=== PATIENT | male | born 1965 | race Caucasian/White ===

== ENCOUNTER 2018-01-16 18:28 | Emergency (ER) | payer OTHER ==
--- NOTE | 2018-01-16 18:41 | ER Document Report ---
ED Medical Screen (RME) - General Chief Complaint: S/S of Possible Stroke Stated Complaint: POSSIBLE STROKE Time Seen by Provider: 01/16/18 18:39 Mode of Arrival: Ambulatory Information source: Patient Notes: 53-year-old male history of 2 previous CVAs presents with family with concerns of altered mental status slurred speech. Patient's last known well was 7:00 this morning I have greeted and performed a rapid initial assessment of this patient. A comprehensive ED assessment and evaluation of the patient, analysis of test results and completion of the medical decision making process will be conducted by additional ED providers. PHYSICAL EXAMINATION: GENERAL: Well-appearing, well-nourished and in no acute distress. HEAD: Atraumatic, normocephalic. EYES: Pupils equal round extraocular movements intact, conjunctiva are normal. ENT: Nares patent NECK: Normal range of motion LUNGS: No respiratory distress Musculoskeletal: Normal range of motion NEUROLOGICAL: Minimal slurred speech noted PSYCH: Normal mood, normal affect. SKIN: Warm, Dry, normal turgor, no rashes or lesions noted. TRAVEL OUTSIDE OF THE [place] IN LAST 30 DAYS: No - Related Data Allergies/Adverse Reactions: No Known Allergies Allergy (Verified 07/18/16 14:31) Past Medical History - Past Medical History Cardiac Medical History: Reports: Hx Hypertension - newly diagnosed Neurological Medical History: Reports: Hx Cerebrovascular Accident Psychiatric Medical History: Denies: Hx Depression Physical Exam - Vital signs Vitals: Temp Pulse BP Pulse Ox 97.9 F 110 H 144/95 H 95 01/16/18 18:34 01/16/18 18:34 01/16/18 18:34 01/16/18 18:34 Course - Vital Signs Vital signs: Temp Pulse Resp BP Pulse Ox 97.9 F 110 H 144/95 H 95 01/16/18 18:34 01/16/18 18:34 01/16/18 18:34 01/16/18 18:34
--- NOTE | 2018-01-16 19:00 | RADIOLOGY REPORT (SQ) ---
EXAM DESCRIPTION: CHEST SINGLE VIEW COMPLETED DATE/TIME: 01/16/2018 6:48 pm REASON FOR STUDY: slurred speech COMPARISON: 07/18/2016 EXAM PARAMETERS: NUMBER OF VIEWS: One view. TECHNIQUE: Single frontal radiographic view of the chest acquired. RADIATION DOSE: NA LIMITATIONS: None. FINDINGS: LUNGS AND PLEURA: No opacities, masses or pneumothorax. No pleural effusion. MEDIASTINUM AND HILAR STRUCTURES: No masses. Contour normal. HEART AND VASCULAR STRUCTURES: Heart normal in size. Normal vasculature. BONES: No acute findings. HARDWARE: None in the chest. OTHER: No other significant finding. IMPRESSION: NO ACUTE RADIOGRAPHIC FINDING IN THE CHEST. TECHNICAL DOCUMENTATION: JOB ID: [id number] [employer]- All Rights Reserved Reading location - IP/workstation name: [email or web address]
--- NOTE | 2018-01-16 19:07 | RADIOLOGY REPORT (SQ) ---
EXAM DESCRIPTION: CT HEAD WITHOUT COMPLETED DATE/TIME: 01/16/2018 6:51 pm REASON FOR STUDY: slurred speech COMPARISON: 07/18/2016 TECHNIQUE: Axial images acquired through the brain without intravenous contrast. Images reviewed wi th bone, brain and subdural windows. Images stored on PACS. All CT scanners at this facility use dose modulation, iterative reconstruction, and/or weight based d osing when appropriate to reduce radiation dose to as low as reasonably achievable (ALARA). [facility]: Dose Right [facility]: CareDose [facility]: Dose Right [facility]: Teradose 4D [facility]: Smart Technologies RADIATION DOSE: CT Rad equipment meets quality standard of care and radiation dose reduction techniq ues were employed. CTDIvol: 64.6 mGy. DLP: 1163 mGy-cm. mGy. LIMITATIONS: None. FINDINGS: VENTRICLES: Normal size and contour. CEREBRUM: There are old occipital infarcts bilaterally, the right is greater than the left. There is no acute hemorrhage or infarction. Normal arzola/white matter differentiation. CEREBELLUM: No masses. No hemorrhage. No alteration of density. No evidence for acute infarction. EXTRAAXIAL SPACES: No fluid collections. No masses. ORBITS AND GLOBE: No intra- or extraconal masses. Normal contour of globe without masses. CALVARIUM: No fracture. PARANASAL SINUSES: Significant mucoperiosteal thickening is present in the left maxillary sinus and m ild changes in the right. SOFT TISSUES: No mass or hematoma. OTHER: No other significant finding. IMPRESSION: 1. 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 2. Maxillary sinus disease. EVIDENCE OF ACUTE STROKE: NO. COMMENT: Findings were discussed with the ordering physician at 1901 hours on this date. Quality ID # [id number]: Final reports with documentation of one or more dose reduction techniques (e.g., Au tomated exposure control, adjustment of the mA and/or kV according to patient size, use of iterative reconstruction technique) TECHNICAL DOCUMENTATION: JOB ID: [id number] [employer] All Rights Reserved Reading location - IP/workstation name: [email or web address]
[2018-01-16 19:30] LABS: HEMATOCRIT 44.5 % (37.9-51.0); MEAN CORPUSCULAR HEMOGLOBIN 31.1 pg (27.0-33.4); MEAN CORPUSCULAR HGB CONC 33.7 g/dL (32.0-36.0); MEAN CORPUSCULAR VOLUME 92 fl (80-97); PLATELET COUNT 383 10^3/uL (150-450); RED BLOOD COUNT 4.82 10^6/uL (4.35-5.55); RED CELL DISTRIBUTION WIDTH 13.1 % (11.5-14.0); WHITE BLOOD COUNT 17.8 10^3/uL (4.0-10.5)
[2018-01-16 19:41] LABS: ALANINE AMINOTRANSFERASE 34 U/L (21-72); ALBUMIN 4.5 g/dL (3.5-5.0); ALKALINE PHOSPHATASE 89 U/L (38-126); ANION GAP 13 (5-19); ASPARTATE AMINO TRANSFERASE 24 U/L (17-59); BILIRUBIN,DIRECT 0.4 mg/dL (0.0-0.4); BILIRUBIN,TOTAL 0.5 mg/dL (0.2-1.3); BLOOD UREA NITROGEN 14 mg/dL (7-20); CALCIUM 9.5 mg/dL (8.4-10.2); CARBON DIOXIDE 22 mmol/L (22-30); CHLORIDE 103 mmol/L (98-107); CREATINE KINASE 222 U/L (55-170); GLUCOSE 117 mg/dL (75-110); POTASSIUM 4.6 mmol/L (3.6-5.0); SODIUM 137.7 mmol/L (137-145)
--- NOTE | 2018-01-16 19:45 | ER Document Report ---
ED General - General Chief Complaint: S/S of Possible Stroke Stated Complaint: POSSIBLE STROKE Time Seen by Provider: 01/16/18 18:39 Mode of Arrival: Ambulatory Information source: Patient, Relative Notes: This is a 53-year-old man with a history of atrial fibrillation (Eliquis), CVA 2 who is brought into the emergency room because of drooling, unsteadiness, shaking and having fell on the floor. Patient was last seen by the son at 8 AM before the son went to work. The patient states that sometime during the morning, his symptoms started rather abruptly. The patient's states that the patient did not "feel well last night". Patient at baseline has a left hemianopsia, processing issues, but he is ambulatory but is limited somewhat by his visual disturbance. TRAVEL OUTSIDE OF THE [place] IN LAST 30 DAYS: No - HPI Onset: Just prior to arrival Onset/Duration: Sudden Quality of pain: No pain Severity: None Pain Level: Denies Associated symptoms: Diarrhea, Nausea. denies: Chills, Fever, Shortness of breath Exacerbated by: Denies Relieved by: Denies Similar symptoms previously: Yes Recently seen / treated by doctor: Yes - Related Data Allergies/Adverse Reactions: No Known Allergies Allergy (Verified 07/18/16 14:31) Past Medical History - General Information source: Patient - Social History Smoking Status: Former Smoker Cigarette use (# per day): No Chew tobacco use (# tins/day): No Frequency of alcohol use: None Drug Abuse: None Lives with: Family Family History: Reviewed & Not Pertinent Patient has suicidal ideation: No Patient has homicidal ideation: No - Past Medical History Cardiac Medical History: Reports: Hx Hypercholesterolemia, Hx Hypertension - newly diagnosed Neurological Medical History: Reports: Hx Cerebrovascular Accident Renal/ Medical History: Denies: Hx Peritoneal Dialysis Psychiatric Medical History: Denies: Hx Depression Surgical Hx: Negative Past Surgical History: Reports: Other - Mole removed from the face Review of Systems - Review of Systems Constitutional: denies: Chills, Fever EENT: No symptoms reported Cardiovascular: No symptoms reported Respiratory: No symptoms reported Gastrointestinal: See HPI Genitourinary: No symptoms reported Male Genitourinary: No symptoms reported Musculoskeletal: No symptoms reported Skin: No symptoms reported Hematologic/Lymphatic: No symptoms reported Neurological/Psychological: See HPI Physical Exam - Vital signs Vitals: Temp Pulse BP Pulse Ox 97.9 F 110 H 144/95 H 95 01/16/18 18:34 01/16/18 18:34 01/16/18 18:34 01/16/18 18:34 Notes: Physical exam: GENERAL: This is a 53-year-old man, he appears to have dry mucous membranes, he is alert and answering questions and he moans intermittently. He does appear chronically ill. He does have ketones on his breath. Temperature is 99.7 rectally, pulse is 106, O2 sat is 96% on room air, respiratory rate is 20, blood pressure is 150/95. HEAD: Atraumatic, normocephalic. EYES: Pupils equal round and reactive to light, extraocular movements intact, sclera anicteric, conjunctiva are normal. ENT: TMs normal, nares patent, oropharynx clear without exudates. Dry mucous membranes. NECK: Normal range of motion, supple without obvious mass or JVD. LUNGS: Breath sounds clear to auscultation bilaterally and equal. No wheezes rales or rhonchi. HEART: Regular rate and rhythm without murmurs, rubs or gallops. ABDOMEN: Soft, normoactive bowel sounds. No tenderness to palpation. No guarding, no rebound. No masses appreciated. Rectal: He does have an external hemorrhoid. There is no obvious masses on digital rectal exam above the external hemorrhoid. The stool was sent to lab for heme study. EXTREMITIES: Normal range of motion, no pitting or edema. No clubbing or cyanosis. NEUROLOGICAL: Patient has a residual left hemianopsia, he does have slurred speech as per the son and , no focal motor weakness, sensory appears to be intact. The gait was not tested PSYCH: Normal mood, normal affect. SKIN: Warm, Dry, normal turgor, no rashes or lesions noted. Course - Re-evaluation Re-evalutation: 01/16/18 23:06 Note: The onset of the event today was sometime after 8 AM (last seen normal 11 hours previous). The patient's symptoms after discussion with the and son with slurred speech, gait imbalance. Patient was complaining of headache, unsteadiness and weakness. Patient has no obvious focal motor weakness on exam , his speech was slightly slurred, he does have a chronic hemianopsia, his sensory was intact. By history, the patient's states that the slurred speech had improved by the time I saw him (but did not resolve completely). She states that this was similar to previous presentation of a prior stroke. The patient's exam was essentially unremarkable. He did appear to have some blood around an external hemorrhoid but a rectal exam showed stool which was heme negative. He does have a leukocytosis but has been afebrile and no obvious source of infection at this time. 01/16/18 23:07 - Vital Signs Vital signs: Temp Pulse Resp BP Pulse Ox 99.7 F 93 22 H 130/93 H 94 01/16/18 19:33 01/17/18 00:00 01/17/18 01:31 01/17/18 01:31 01/17/18 01:31 - Laboratory Result Diagrams: 01/16/18 19:05 01/16/18 19:05 Laboratory results interpreted by me: 01/16/18 01/16/18 01/16/18 19:05 19:05 22:34 WBC 17.8 H Seg Neuts % (Manual) 93 H Lymphocytes % (Manual) 6 L Monocytes % (Manual) 1 L Abs Neuts (Manual) 16.6 H Glucose 117 H Creatine Kinase 222 H Urine Protein 30 H Urine Blood MODERATE H - Diagnostic Test Radiology reviewed: Image reviewed, Reports reviewed - CT of the head shows old bilateral occipital strokes. Chest x-ray shows no infiltrates. - EKG Interpretation by Me Rate: Tachycardia - EKG shows sinus tachycardia with a ventricular rate of 114, no acute ST-T wave changes Critical Care Note - Critical Care Note Total time excluding time spent on procedures (mins): 60 Discharge - Discharge Clinical Impression: CVA, Leukocytosis Condition: Stable Disposition: ADMITTED OBSERVATION Admitting Provider: Hospitalist - Dr Garcia Unit Admitted: Telemetry
[2018-01-16] MEDS ORDERED: NORMAL SALINE 1000 ML 1,000 ML IV ONE ×2 (19:46→22:25)
[2018-01-16 19:52] LABS: CREATINE KINASE MB 4.49 ng/mL (<4.55)
[2018-01-16 19:55] LABS: INTERNATIONAL RATION (INR) 1.09; PARTIAL THROMBOPLASTIN TIME 34.7 SEC (23.5-35.8); PROTHROMBIN TIME 14.9 SEC (11.4-15.4); TROPONIN I < 0.012 ng/mL
[2018-01-16 20:02] LABS: ABSOLUTE LYMPHOCYTES# (MANUAL) 1.1 10^3/uL (0.5-4.7); ABSOLUTE MONOCYTES # (MANUAL) 0.2 10^3/uL (0.1-1.4); ABSOLUTE NEUTROPHILS# (MANUAL) 16.6 10^3/uL (1.7-8.2); BASOPHILS % (MANUAL) 0 % (0-2); EOSINOPHILS % (MANUAL) 0 % (0-6); LYMPHOCYTES % (MANUAL) 6 % (13-45); MONOCYTES % (MANUAL) 1 % (3-13); SEGMENTED NEUTROPHILS % (MAN) 93 % (42-78); TOTAL CELLS COUNTED 100
[2018-01-16 20:03] LABS: PLATELET COMMENT ADEQUATE; PLATELET LARGE PRESENT
[2018-01-16] MEDS ORDERED: ONDANSETRON HCL INJ/PF 4 MG/2 ML SDV IV ONE (20:03)
[2018-01-16 20:04] LABS: POLYCHROMASIA SLIGHT
[2018-01-16] MEDS ORDERED: DIPHENHYDRAMINE HCL 50 MG/ML VIAL IV ONE (20:51)
[2018-01-16] MEDS ORDERED: METOCLOPRAMIDE HCL INJ/PF 10 MG/2 ML SDV IV ONE (20:51)
[2018-01-16] MEDS ORDERED: ACETAMINOPHEN 325 MG TABLET PO ONE (20:52)
--- NOTE | 2018-01-16 22:02 | EKG REPORT ---
SEVERITY:- BORDERLINE ECG - SINUS TACHYCARDIA PROBABLE LEFT ATRIAL ABNORMALITY : Confirmed by: Rosie Phillip 16-Jan-2018 22:00:45
[2018-01-16 22:54] LABS: APPEARANCE,URINE CLOUDY; BILIRUBIN,URINE NEGATIVE (NEGATIVE); COLOR,URINE YELLOW; GLUCOSE, URINE NEGATIVE (NEGATIVE); KETONES,URINE NEGATIVE (NEGATIVE); LEUKOCYTE ESTERASE,URINE NEGATIVE (NEGATIVE); NITRITE,URINE NEGATIVE (NEGATIVE); PROTEIN,URINE 30 mg/dL (NEGATIVE); URINE SPECIFIC GRAVITY 1.023; UROBILINOGEN,URINE NEGATIVE mg/dL (<2.0)
[2018-01-17] MEDS ORDERED: ONDANSETRON HCL INJ/PF 4 MG/2 ML SDV IV PRN (00:23)
[2018-01-17] MEDS ORDERED: ACETAMINOPHEN 325 MG TABLET PO PRN (00:23)
[2018-01-17] MEDS ORDERED: HYDRALAZINE HCL INJ/PF 20 MG/1 ML SDV IV PRN (00:35)
--- NOTE | 2018-01-17 05:53 | PDOC H&P ---
History of Present Illness Admission Date/PCP: 01/16/18 23:40 KIANNA CONTRERAS PA-C Patient complains of: Left-sided headache and neck pain, nausea and bright lights in the left eye around 8 AM. Generalized weakness and chills today per . History of Present Illness: CHRISTEN ASHTON is a 53 year old male smoker with history of paroxysmal A. fib (on eliquis), CVA 2 (with left hemianopsia and slow mentation) and hypertension was admitted with above-mentioned complaints. The patient is currently sleepy so most of the history was obtained from his at bedside. According to his , the patient was doing well when he woke up this morning around 6:30 AM. And when she called the house later in the day to check on her , he did not answer which was not an unusual thing since he has been taking several naps during the day since his CVA. But around 5:30 PM - 6:00 PM when she came back home, she said that the patient seemed "disoriented" and he told her that he was feeling very weak and that he fell. She also noticed that he might have some slurred speech so she was concerned about him having another stroke and decided to bring him to the hospital for further management and treatment. According to the patient who provided limited history, he started having left- sided headache and neck pain around 8:00 AM (similar symptoms to previous CVAs) . He also had some flashing lights in his left eye and felt nauseous. He denied any fever but complained of chills and diaphoresis. He also complained of some cough with shortness of breath, shaking chills and drooling. He apparently went to the bathroom but since he was feeling so weak, he fell onto the toilet. He was able to get up by himself and walked towards his bedroom but as he was trying to sit in the chair, he fell out of it and it took him sometime to get up. He also complained of having diarrhea and decreased appetite today. According to his , he was around family members who had URI symptoms lately. In the ED, his temperature was 97.9, heart rate 110, respiratory rate 28 (down to 19), pressure 144/95 with oxygen saturation of 95% on room air. His WBC was 17.8. Blood glucose was 117 and initial troponin negative. His UA and CXR were both negative. A head CT was done which showed old bilateral occipital infarcts with no acute intracranial findings. Past Medical History Medical History: Other - According to the patient's and based on previous records. Cardiac Medical History: Reports: Atrial Fibrillation - paroxysmal, Hyperlipidema, Hypertension - newly diagnosed Neurological Medical History: Reports: Ischemic CVA Psychiatric Medical History: Denies: Depression Past Surgical History Past Surgical History: Reports: Tonsillectomy, Other - basal cell cancer resection from right cheek. Social History Smoking Status: Current Every Day Smoker Cigarettes Packs Per Day: 0.5 - In a pack a day for more than 30 years. Frequency of Alcohol Use: Heavy - Beer 3 times a week per . Hx Recreational Drug Use: No Drugs: None Hx Prescription Drug Abuse: No - Advance Directive Resuscitation Status: Full Code Family History Parental Family History Reviewed: Yes - No diabetes in the family or heart disease per patient. Children Family History Reviewed: No Sibling(s) Family History Reviewed.: Yes Medication/Allergy Home Medications: Apixaban [Eliquis] 5 mg PO DAILY 07/18/16 Atorvastatin Calcium 40 mg PO QHS 07/18/16 Lisinopril [Lisinopril] 20 mg PO DAILY 07/18/16 Sertraline HCl [Sertraline HCl] 50 mg PO DAILY 07/18/16 Allergies/Adverse Reactions: No Known Allergies Allergy (Verified 07/18/16 14:31) Review of Systems ROS unobtainable: Other - Pertinent positives and negatives as detailed in the HPI. Physical Exam Vital Signs: Temp Pulse Resp BP Pulse Ox 99.7 F 94 23 H 124/68 90 L 01/16/18 19:33 01/16/18 21:00 01/16/18 21:30 01/16/18 21:30 01/16/18 21:30 General appearance: PRESENT: no acute distress, well-developed Head exam: PRESENT: atraumatic, normocephalic Eye exam: PRESENT: conjunctiva pink, EOMI, PERRLA Mouth exam: PRESENT: moist, neck supple Neck exam: PRESENT: full ROM. ABSENT: JVD Respiratory exam: PRESENT: clear to auscultation carl. ABSENT: rales, rhonchi, wheezes Cardiovascular exam: PRESENT: RRR, +S1, +S2 Pulses: PRESENT: normal dorsalis pedis pul GI/Abdominal exam: PRESENT: normal bowel sounds, soft. ABSENT: distended, rebound, tenderness Rectal exam: PRESENT: deferred Extremities exam: ABSENT: pedal edema Musculoskeletal exam: PRESENT: full ROM Neurological exam: PRESENT: oriented to person, oriented to place, oriented to time, oriented to situation, CN II-XII grossly intact - Except CN II and VIII., other - Sleepy but arousable.. ABSENT: motor sensory deficit Skin exam: PRESENT: dry, warm. ABSENT: intact, rash Results Laboratory Results: CBC: WBC 7.8, hemoglobin 15.0, hematocrit 44.5, MCV 92, RDW 13.1, platelets 383. PT/INR 14.9/1.09. CMP: Sodium 137.7, potassium 4.6, chloride 103, bicarb 22, anion gap 13, BUN 14 , creatinine 0.74, glucose 117, calcium 9.5, liver enzymes within normal limits. Troponin 1 negative. UA negative. Hemoccult stool negative. EKG Comments: Lead EKG, sinus rhythm, ventricular rate 115, [place] 0, QTC prolongation, first- degree AV block, Q-wave in lead III no other changes. Compared to a previous 12 -lead EKG done on 07/18/2016, sinus rhythm, ventricular rate 70, [place] 0, first- degree AV block and Q waves in lead III. Impressions: Chest X-Ray 01/16/18 18:39 IMPRESSION: NO ACUTE RADIOGRAPHIC FINDING IN THE CHEST. Head CT 01/16/18 18:39 IMPRESSION: 1. 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 2. Maxillary sinus disease. EVIDENCE OF ACUTE STROKE: NO. Assessment & Plan - Diagnosis (1) TIA (transient ischemic attack) Qualifiers: Transient cerebral ischemia type: unspecified Qualified Code(s): G45.9 - Transient cerebral ischemic attack, unspecified Is this a current diagnosis for this admission?: Yes Plan: and/or CVA. His head CT scan showed old infarcts. Will order stroke workup including MRI/MRA head, MRA neck, echocardiogram, fasting lipid profile and HbA1c. Will resume Eliquis for now and increase Lipitor to 80 mg nightly. According to his , he is sometimes noncompliant with his Eliquis. But if he has an acute CVA, he probably needs to be switched to Coumadin given history of A. fib and/or further consultation with neurology. (2) Essential hypertension Is this a current diagnosis for this admission?: Yes Plan: Will monitor and resume his home BP medications as indicated (3) SIRS (systemic inflammatory response syndrome) Is this a current diagnosis for this admission?: Yes Plan: Given tachycardia and leukocytosis. UA and chest x-ray were negative. Will continue IV hydration and repeat CBC in a.m. (4) Generalized weakness Is this a current diagnosis for this admission?: Yes Plan: Unclear etiology. Of note, on reviewing his social history it was mentioned that he was a heavy drinker but his said that he only drinks beer 3 times a week. Will check ammonia level, TSH and B12. No clear evidence of alcohol withdrawal at this time. (5) Smoker Is this a current diagnosis for this admission?: No Plan: Less than a pack a day for more than 30 years. He seems to be motivated to quit. He refused a nicotine patch. (6) Paroxysmal A-fib Is this a current diagnosis for this admission?: No Plan: rate better controlled now. Will continue Eliquis. (7) Flashing lights Is this a current diagnosis for this admission?: Yes Plan: Left eye. The patient should follow up with ophthalmology. - Time Time Spent: Greater than 70 Minutes Anticipated discharge: Home
[2018-01-17 06:25] LABS: HEMATOCRIT 39.1 % (37.9-51.0); HEMOGLOBIN 13.5 g/dL (13.5-17.0); MEAN CORPUSCULAR HEMOGLOBIN 31.7 pg (27.0-33.4); MEAN CORPUSCULAR HGB CONC 34.5 g/dL (32.0-36.0); MEAN CORPUSCULAR VOLUME 92 fl (80-97); PLATELET COUNT 314 10^3/uL (150-450); RED BLOOD COUNT 4.26 10^6/uL (4.35-5.55); RED CELL DISTRIBUTION WIDTH 13.1 % (11.5-14.0); WHITE BLOOD COUNT 13.6 10^3/uL (4.0-10.5)
[2018-01-17 06:54] LABS: CHOLESTEROL 194.53 mg/dL (0-200); TRIGLYCERIDES 84 mg/dL (<150)
[2018-01-17 07:05] LABS: DIRECT LDL 117 mg/dL (<100)
[2018-01-17 07:46] LABS: ANION GAP 8 (5-19); BLOOD UREA NITROGEN 11 mg/dL (7-20); CALCIUM 8.7 mg/dL (8.4-10.2); CARBON DIOXIDE 23 mmol/L (22-30); CHLORIDE 107 mmol/L (98-107); GLUCOSE 93 mg/dL (75-110); POTASSIUM 4.3 mmol/L (3.6-5.0); SODIUM 137.7 mmol/L (137-145)
[2018-01-17] MEDS ORDERED: APIXABAN 5 MG TABLET PO SCH (10:00)
[2018-01-17] MEDS ORDERED: ASPIRIN 81 MG TABLET, ENT COATED PO SCH (10:00)
--- NOTE | 2018-01-17 10:25 | RADIOLOGY REPORT (SQ) ---
EXAM DESCRIPTION: MRA HEAD WITHOUT; MRI HEAD WITHOUT COMPLETED DATE/TIME: 01/17/2018 10:00 am REASON FOR STUDY: TIA I48.1 PERSISTENT ATRIAL FIBRILLATION COMPARISON: CT brain 02/05/2016, 07/18/2016, 01/16/2018 MRI brain and MRA exam [place] 02/05/2016 TECHNIQUE: Multiplanar imaging includes non-contrasted T1, T2, FLAIR, and diffusion with ADC map seq uences. Images stored on PACS. MRA exam [place] was performed, without contrast. 3D ozic-bi-xpaqul acquisition, source ayala a and maximum intensity projected images were reviewed. LIMITATIONS: None. FINDINGS: ANATOMY: No developmental anomalies. Normal vascular flow voids. Pituitary fossa normal. CSF SPACES: Normal in size and contour. No hemorrhage. CEREBRUM: Today's diffusion-weighted images are negative for acute ischemic change. There are well-circumscribed areas of encephalomalacia from old infarcts as follows: Moderate size right posterior cerebral artery distribution infarct, right temporal and occipital lobe Small lacunar infarct Right thalamus Moderate size Right and left posterior frontal cortex and subcortical white matter Small Right anterior frontal perisylvian cortical and subcortical white matter Remainder of the study demonstrates no MR evidence of acute ischemic change, acute intracranial hemor rhage, mass effect, or midline shift. POSTERIOR FOSSA: Tiny lacunar infarct right cerebellar hemisphere, chronic. No hemorrhage. No edema, masses or mass effect. Internal auditory canals, cerebello-pontine angles, mastoids normal. DIFFUSION IMAGING: Negative for acute or sub-acute infarction. ORBITS: No masses. Globes normal. PARANASAL SINUSES: No fluid levels. Mucosa normal. OTHER: No [place] stenosis, vascular malformation, or aneurysm. IMPRESSION: No MRI evidence of acute ischemic change. Multiple infarcts as above. Unremarkable [place] MRA. EVIDENCE OF ACUTE STROKE: No TECHNICAL DOCUMENTATION: JOB ID: [id number]- All Rights Reserved Reading location - IP/workstation name: [email or web address]
--- NOTE | 2018-01-17 10:25 | RADIOLOGY REPORT (SQ) ---
EXAM DESCRIPTION: MRA HEAD WITHOUT; MRI HEAD WITHOUT COMPLETED DATE/TIME: 01/17/2018 10:00 am REASON FOR STUDY: TIA I48.1 PERSISTENT ATRIAL FIBRILLATION COMPARISON: CT brain 02/05/2016, 07/18/2016, 01/16/2018 MRI brain and MRA exam [place] 02/05/2016 TECHNIQUE: Multiplanar imaging includes non-contrasted T1, T2, FLAIR, and diffusion with ADC map seq uences. Images stored on PACS. MRA exam [place] was performed, without contrast. 3D [id number]-iz-[id number] acquisition, source ayala a and maximum intensity projected images were reviewed. LIMITATIONS: None. FINDINGS: ANATOMY: No developmental anomalies. Normal vascular flow voids. Pituitary fossa normal. CSF SPACES: Normal in size and contour. No hemorrhage. CEREBRUM: Today's diffusion-weighted images are negative for acute ischemic change. There are well-circumscribed areas of encephalomalacia from old infarcts as follows: Moderate size right posterior cerebral artery distribution infarct, right temporal and occipital lobe Small lacunar infarct Right thalamus Moderate size Right and left posterior frontal cortex and subcortical white matter Small Right anterior frontal perisylvian cortical and subcortical white matter Remainder of the study demonstrates no MR evidence of acute ischemic change, acute intracranial hemor rhage, mass effect, or midline shift. POSTERIOR FOSSA: Tiny lacunar infarct right cerebellar hemisphere, chronic. No hemorrhage. No edema, masses or mass effect. Internal auditory canals, cerebello-pontine angles, mastoids normal. DIFFUSION IMAGING: Negative for acute or sub-acute infarction. ORBITS: No masses. Globes normal. PARANASAL SINUSES: No fluid levels. Mucosa normal. OTHER: No [place] stenosis, vascular malformation, or aneurysm. IMPRESSION: No MRI evidence of acute ischemic change. Multiple infarcts as above. Unremarkable [place] MRA. EVIDENCE OF ACUTE STROKE: No TECHNICAL DOCUMENTATION: JOB ID: [id number]- All Rights Reserved Reading location - IP/workstation name: [email or web address]
--- NOTE | 2018-01-17 10:30 | RADIOLOGY REPORT (SQ) ---
EXAM DESCRIPTION: MRA NECK COMBO COMPLETED DATE/TIME: 01/17/2018 10:00 am REASON FOR STUDY: TIA I48.1 PERSISTENT ATRIAL FIBRILLATION COMPARISON: None. TECHNIQUE: MRA of the carotid and vertebral arteries was performed using 2D and 3D [id number] te chniques without and with the use of gadolinium. 3-D MIPs performed at the workstation and stored on PACS. CONTRAST TYPE AND DOSE: 20 mL Prohance. RENAL FUNCTION: GFR > 60. LIMITATIONS: None. FINDINGS: GREAT VESSEL ORIGINS: Normal. No stenoses. VERTEBRAL ARTERIES: No stenoses. No evidence for aneurysm or dissection. Small right vertebral radha ry intracranially, provides in flow to the right PICA. This is a normal anatomic variant RIGHT CAROTID SYSTEM: No significant stenosis. LEFT CAROTID SYSTEM: No significant stenosis. OTHER: No other significant finding. IMPRESSION: NORMAL MRA OF THE CAROTIDS WITH AND WITHOUT CONTRAST. COMMENT: Quality ID #[id number]: Measurements of distal internal carotid diameter were used as the denomina tor for stenosis measurement. TECHNICAL DOCUMENTATION: JOB ID: [id number] [employer]- All Rights Reserved Reading location - IP/workstation name: [email or web address]
--- NOTE | 2018-01-17 12:15 | PDOC DISCHARGE SUMMARY ---
General - Admit/Disc Date/PCP Admission Date/Primary Care Provider: 01/16/18 23:40 KIANNA CONTRERAS PA-C Discharge Date: 01/17/18 - Discharge Diagnosis (1) Acute focal neurological deficit Is this a current diagnosis for this admission?: Yes Summary: Concern for CVA ruled out: Patient states that he has not been compliant with his Eliquis. Patient states that he forgets to take a dose or does not take any of the medication some days. Patient was told that he needs to be compliant with using Eliquis as written. Patient had MRI and MRI that demonstrated no evidence of acute CVA or vascular abnormalities. Patient was told that he will need a follow-up with neurology in 2 weeks. (2) Alcohol dependence Is this a current diagnosis for this admission?: Yes Summary: Patient states that he has cut back on his alcohol intake however patient's states that he may be drinking more than he is reporting. Patient states that he has no intention of stopping his alcohol intake. is also confirmed that patient is not interested in stopping his alcohol intake but she does report he is trying to cut back. - Additional Information Resuscitation Status: Full Code Discharge Diet: Cardiac Discharge Activity: Activity As Tolerated, No Driving Prescriptions: Multivit-Min/Folic/Vit K/Lycop [Men's Multivitamin Caplet] 1 each PO DAILY #30 tablet Home Medications: Apixaban [Eliquis] 5 mg PO DAILY 07/18/16 Atorvastatin Calcium 40 mg PO QHS 07/18/16 Lisinopril 20 mg PO DAILY 07/18/16 Sertraline HCl 50 mg PO DAILY 07/18/16 Multivit-Min/Folic/Vit K/Lycop [Men's Multivitamin Caplet] 1 each PO DAILY #30 tablet 01/17/18 History of Present Illness Patient complains of: Left side headache and neck pain. History of Present Illness: CHRISTEN ASHTON is a 53 year old male presents to hospital with complaint of left-sided headache and weakness accompanied by nausea and bright light in the left eye that was similar to when he had a stroke before. Hospital Course Hospital Course: Patient is a 53-year-old gentleman was admitted to our facility due to concern for stroke. Patient's MRI and MRA demonstrated no evidence of stroke. Patient reported this morning that he is no longer having bright lights but he states he sees a woman's face at times. This was shared with patient's and both agreed that this most likely is a chronic problem that is related to patient's EtOH abuse. Nursing states that patient has not exhibited any signs of alcohol withdrawal. Patient states that he is not interested in discontinuing his alcohol intake. Patient reported that he still is drinking beer on a regular basis and he also reports that he has not been consistent with taking his Eliquis. Patient denies sensation of bright lights in his left eye and therefore will follow up with ophthalmology as outpatient. also reported the patient has been more confused at home over the last several weeks. Physical Exam Vital Signs: Temp Pulse Resp BP Pulse Ox 98.3 F 48 L 17 140/67 H 92 01/17/18 11:52 01/17/18 11:52 01/17/18 11:52 01/17/18 11:52 01/17/18 11:52 Intake & Output 01/16/18 01/17/18 01/18/18 06:59 06:59 06:59 Intake Total 10 Balance 10 Weight 87.7 kg General appearance: PRESENT: no acute distress, well-developed, well-nourished Head exam: PRESENT: atraumatic, normocephalic Eye exam: PRESENT: conjunctiva pink, EOMI. ABSENT: scleral icterus Ear exam: PRESENT: normal external ear exam Mouth exam: PRESENT: moist, tongue midline Neck exam: ABSENT: carotid bruit, JVD, lymphadenopathy, thyromegaly Respiratory exam: PRESENT: clear to auscultation carl. ABSENT: rales, rhonchi, wheezes Cardiovascular exam: PRESENT: RRR. ABSENT: diastolic murmur, rubs, systolic murmur Pulses: PRESENT: normal dorsalis pedis pul Vascular exam: PRESENT: normal capillary refill GI/Abdominal exam: PRESENT: normal bowel sounds, soft. ABSENT: distended, guarding, mass, organolmegaly, rebound, tenderness Rectal exam: PRESENT: deferred Extremities exam: PRESENT: full ROM. ABSENT: calf tenderness, clubbing, pedal edema Musculoskeletal exam: PRESENT: full ROM Neurological exam: PRESENT: alert, awake, oriented to person, oriented to place , oriented to time, oriented to situation, CN II-XII grossly intact. ABSENT: motor sensory deficit Psychiatric exam: PRESENT: appropriate affect, normal mood. ABSENT: homicidal ideation, suicidal ideation Skin exam: PRESENT: dry, intact, warm. ABSENT: cyanosis, rash Results Laboratory Results: 01/17/18 05:59 01/17/18 05:59 01/17/18 01/17/18 01/17/18 05:59 05:59 05:59 WBC 13.6 H RBC 4.26 L Hgb 13.5 Hct 39.1 MCV 92 MCH 31.7 MCHC 34.5 RDW 13.1 Plt Count 314 Sodium Potassium Chloride Carbon Dioxide Anion Gap BUN Creatinine Est GFR ( Amer) Est GFR (Non-Af Amer) Glucose Calcium Ammonia 18.9 Triglycerides 84 Cholesterol 194.53 LDL Cholesterol Direct 117 H VLDL Cholesterol 17.0 HDL Cholesterol 56 Vitamin B12 01/17/18 01/17/18 05:59 05:59 WBC RBC Hgb Hct MCV MCH MCHC RDW Plt Count Sodium 137.7 Potassium 4.3 Chloride 107 Carbon Dioxide 23 Anion Gap 8 BUN 11 Creatinine 0.65 Est GFR ( Amer) > 60 Est GFR (Non-Af Amer) > 60 Glucose 93 Calcium 8.7 Ammonia Triglycerides Cholesterol LDL Cholesterol Direct VLDL Cholesterol HDL Cholesterol Vitamin B12 461.0 Impressions: Chest X-Ray 01/16/18 18:39 IMPRESSION: NO ACUTE RADIOGRAPHIC FINDING IN THE CHEST. Head CT 01/16/18 18:39 IMPRESSION: 1. 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 2. Maxillary sinus disease. EVIDENCE OF ACUTE STROKE: NO. Head MRI 01/17/18 00:00 IMPRESSION: No MRI evidence of acute ischemic change. Multiple infarcts as above. Unremarkable [place] MRA. EVIDENCE OF ACUTE STROKE: No Brain MRI with MRA 01/17/18 00:27 IMPRESSION: No MRI evidence of acute ischemic change. Multiple infarcts as above. Unremarkable [place] MRA. EVIDENCE OF ACUTE STROKE: No Neck MRA 01/17/18 00:27 IMPRESSION: NORMAL MRA OF THE CAROTIDS WITH AND WITHOUT CONTRAST. Qualifiers - * PATEINT BEING DISCHARGED WITH ANY OF THE FOLLOWING DIAGNOSIS?: No Plan Time Spent: Greater than 30 Minutes
[2018-01-17 12:40] VITALS: BP 139/80
--- NOTE | 2018-01-17 19:36 | XCELERA REPORT ---
[address] [address] Transthoracic Echocardiogram Report Name: CHRISTEN ASHTON Age: 53 yrs Gender: Male : 1965 Patient Status: Inpatient Patient Location: [address] [place] [address] Study Date: 01/17/2018 12:00 PM Height: 67 in Weight: 193 lb BSA: 2.0 m2 Procedure: A complete two-dimensional transthoracic echocardiogram was performed (2D, M-mode, spectral and color flow Doppler). The study was technically adequate with some images being suboptimal in quality. Reason For Study: tia Ordering Physician: SETH AOYN Performed By: Natasha Anthony Interpretation Summary The left ventricular ejection fraction is normal. There is normal left ventricular wall thickness. Doppler measurements suggest impaired left ventricular relaxation, which is associated with grade I/IV or mild diastolic dysfunction The left ventricle is grossly normal size. Wall motion cannot be accurately commented on, but no definite regional wall motion abnormalities noted. The right ventricular systolic function is normal. The left atrial size is normal. The right atrium is normal. There is a trace amount of mitral regurgitation There is no mitral valve stenosis. There is a trace amount of aortic regurgitation There is no aortic valve stenosis There is a trace or physiologic amount of tricuspid regurgitation Tricuspid regurgitation jet envelope not well defined to measure RV systolic pressure accurately. The aortic root is not well visualized but is probably normal size. The inferior vena cava appeared normal and decreased > 50% with respiration (RAP 5-10 mmHg) There is no pericardial effusion. No definite cardiac source of CVA/TIA noted on this particular trans- thoracic study. Consider RENATE if clinically indicated. May consider mobile cardiac telemetry monitoring (MCT) for ruling out transient AFIB. MMode/2D Measurements & Calculations RVDd: 2.7 cm LVIDd: 4.5 cm FS: 42.4 % Ao root diam: 3.6 cm IVSd: 0.62 cm LVIDs: 2.6 cm EDV(Teich): 94.8 ml LVPWd: 0.68 cm ESV(Teich): 25.1 ml Ao root area: 10.4 cm2 EF(Teich): 73.6 % LA dimension: 3.4 cm Doppler Measurements & Calculations MV E max tawnya: MV P1/2t max tawnya: Ao V2 max: LV V1 max P.2 cm/sec 101.7 cm/sec 139.0 cm/sec 3.6 mmHg MV A max tawnya: MV P1/2t: 40.8 msec Ao max PG: LV V1 max: 89.3 cm/sec 7.7 mmHg 94.8 cm/sec MV E/A: 1.1 MVA(P1/2t): 5.4 cm2 MV dec slope: 729.7 cm/sec2 PA V2 max: TR max tawnya: 97.2 cm/sec 263.3 cm/sec PA max P.8 mmHgTR max P.7 mmHg Left Ventricle The left ventricle is grossly normal size. There is normal left ventricular wall thickness. The left ventricular ejection fraction is normal. Doppler measurements suggest impaired left ventricular relaxation, which is associated with grade I/IV or mild diastolic dysfunction. Wall motion cannot be accurately commented on, but no definite regional wall motion abnormalities noted. Right Ventricle The right ventricle is grossly normal size. There is normal right ventricular wall thickness. The right ventricular systolic function is normal. Atria The right atrium is normal. The left atrial size is normal. Interarterial septum not well visualized and not well dopplered. Cannot comment on ASD/PFO presence. Mitral Valve The mitral valve is grossly normal. There is no mitral valve stenosis. There is a trace amount of mitral regurgitation. Aortic Valve The aortic valve is grossly normal. There is no aortic valve stenosis. There is a trace amount of aortic regurgitation. Tricuspid Valve The tricuspid valve is not well visualized, but is grossly normal. There is no tricuspid stenosis. There is a trace or physiologic amount of tricuspid regurgitation. Tricuspid regurgitation jet envelope not well defined to measure RV systolic pressure accurately. Pulmonic Valve The pulmonic valve is not well visualized. Great Vessels The aortic root is not well visualized but is probably normal size. The inferior vena cava appeared normal and decreased > 50% with respiration (RAP 5-10 mmHg). Effusions There is no pericardial effusion. Incidental Findings No definite cardiac source of CVA/TIA noted on this particular trans- thoracic study. Consider RENATE if clinically indicated. May consider mobile cardiac telemetry monitoring (MCT) for ruling out transient AFIB. : SETH AYON > Rosie Phillip
[2018-01-17] MEDS ORDERED: ATORVASTATIN CALCIUM 80 MG TABLET PO SCH (22:00)
== END 2018-01-17 14:42 | disposition home or self-care (01) ==
LOC: ER 18:28 → EH 23:40 → 3S 01-17 02:20
PROVIDERS: ADMIT Internal Medicine Geriatric Medicine; ATTEND Internal Medicine Geriatric Medicine
DX: R29.818 Other symptoms and signs involving the nervous system (principal); F10.20 Alcohol dependence, uncomplicated; Z91.14 Patient's other noncompliance with medication regimen; R51 Headache; R53.1 Weakness; I69.312 Visuospatial deficit and spatial neglect following cerebral infarction; H53.462 Homonymous bilateral field defects, left side; M54.2 Cervicalgia; R11.0 Nausea; R41.0 Disorientation, unspecified; R68.83 Chills (without fever); F17.210 Nicotine dependence, cigarettes, uncomplicated; I69.398 Other sequelae of cerebral infarction; I69.318 Other symptoms and signs involving cognitive functions following cerebral infarction; R05 Cough; R19.7 Diarrhea, unspecified; R63.0 Anorexia; R06.02 Shortness of breath; R25.1 Tremor, unspecified; K11.7 Disturbances of salivary secretion; R26.81 Unsteadiness on feet; R53.83 Other fatigue; H53.8 Other visual disturbances; I48.0 Paroxysmal atrial fibrillation; I10 Essential (primary) hypertension; R65.10 Systemic inflammatory response syndrome (SIRS) of non-infectious origin without acute organ dysfunction; I44.0 Atrioventricular block, first degree; K64.4 Residual hemorrhoidal skin tags; R47.81 Slurred speech; Z68.30 Body mass index [BMI] 30.0-30.9, adult; Z85.828 Personal history of other malignant neoplasm of skin
CPT/HCPCS: 93005; 99291; 96361; 96374; 96375; 36415 ×2; 82553; 82140; 82607; 82550; 85025; 85027; 85610; 85730; 82272; 80048; 80053; 81001; 84484; 83036; 80061; 93306; 70551; 70544; 70549; 71045; 70450; 93010; 92610; G0378 ×2; A9576; J1200; J2765; J3490; J2405; J7030

== ENCOUNTER 2018-08-22 07:12 | Day surgery (SDC) | payer OTHER, MEDICARE ==
[2018-08-19 09:42] LABS: HEMOGLOBIN 9.1 g/dL (13.5-17.0); MEAN CORPUSCULAR HEMOGLOBIN 25.6 pg (27.0-33.4); MEAN CORPUSCULAR HGB CONC 32.3 g/dL (32.0-36.0); MEAN CORPUSCULAR VOLUME 79 fl (80-97); PLATELET COUNT 423 10^3/uL (150-450); RED BLOOD COUNT 3.53 10^6/uL (4.35-5.55); RED CELL DISTRIBUTION WIDTH 15.9 % (11.5-14.0); WHITE BLOOD COUNT 7.9 10^3/uL (4.0-10.5)
[2018-08-19 10:10] LABS: ANION GAP 12 (5-19); BLOOD UREA NITROGEN 13 mg/dL (7-20); CALCIUM 9.2 mg/dL (8.4-10.2); CARBON DIOXIDE 23 mmol/L (22-30); CHLORIDE 104 mmol/L (98-107); GLUCOSE 84 mg/dL (75-110); POTASSIUM 5.3 mmol/L (3.6-5.0)
--- NOTE | 2018-08-19 21:03 | EKG REPORT ---
SEVERITY:- NORMAL ECG - SINUS RHYTHM : Confirmed by: Rosie Phillip 19-Aug-2018 21:03:15
[~2018-08-22 07:12] MED LIST: LACTATED RINGERS 1000 ML IV PRN; LIDOCAINE 0.5% INJ-PF (5 MG/ML) 50 ML SDV SUBCUT PRN
[2018-08-22 08:21] LABS: INTERNATIONAL RATION (INR) 1.13; PROTHROMBIN TIME 15.1 SEC (11.4-15.4)
[2018-08-22 08:22] LABS: PARTIAL THROMBOPLASTIN TIME 33.7 SEC (23.5-35.8)
[2018-08-22] MEDS ORDERED: PROPOFOL INJ 200 MG/20 ML VIAL IV ONE (08:58)
[2018-08-22] MEDS ORDERED: ONDANSETRON HCL INJ/PF 4 MG/2 ML SDV IV PRN (09:58)
[2018-08-22] MEDS ORDERED: SIMETHICONE 80 MG TAB.CHEW PO PRN (09:59)
[2018-08-22] MEDS ORDERED: PROMETHAZINE HCL INJ 25 MG/1 ML VIAL IV PRN (09:59)
[2018-08-22] MEDS ORDERED: ACETAMINOPHEN 325 MG TABLET PO PRN (09:59)
[2018-08-22 10:52] VITALS: BP 129/88
--- NOTE | 2018-08-22 11:13 | Operative Report ---
Operative Report DATE OF SURGERY: 08/22/18 Operative Report: The risks, benefits and alternatives of the procedure including the risks of bleeding, perforation requiring surgery are explained to the patient in detail and informed consent is obtained. Patient is brought back to the operating room and placed in a left, lateral decubital position. Timeout was called. Propofol medication is administered. A rectal examination is done which did not reveal any masses, tears or fissures. An Olympus videoscope was inserted into the patient's rectum. The scope was then carefully advanced all the way to the cecum. The cecum was identified by the usual anatomical landmarks including the ileocecal valve as well as the appendiceal office. Photodocumentation is obtained. The scope was then sequentially pulled back via the various segments of the colon including the ascending colon, hepatic flexure, transverse colon, splenic flexure, descending colon and finally in to the rectosigmoid portions of the colon. Retroflexion maneuver is performed. The risks benefits and alternatives of the procedure explained to the patient in detail and informed consent is obtained.A GIF Olympus video scope was inserted into the patient's mouth and hypopharynx, the esophagus is identified intubated and insufflated, the scope was then advanced through the esophagus stomach and duodenum, retroflexion maneuver is done the esophagus stomach and first and second portions of the duodenum examined PREOPERATIVE DIAGNOSIS: Iron deficiency anemia POSTOPERATIVE DIAGNOSIS: Colon polyp in the cecum status post removal with snare polypectomy. No bleeding lesion noted. Internal hemorrhoids with possibly a thrombosed hemorrhoid. Gastritis status post biopsy rule out Helicobacter pylori. Duodenal nodule status post biopsy. random biopsies taken in the right side of the colon rule out collagenous colitis OPERATION: Colonoscopy with snare polypectomy. Colonoscopy with biopsy. EGD with biopsy SURGEON: TERESITA HOLLIS ANESTHESIA: LMAC TISSUE REMOVED OR ALTERED: As noted above. COMPLICATIONS: None. ESTIMATED BLOOD LOSS: None. INTRAOPERATIVE FINDINGS: As noted above. PROCEDURE: Patient tolerated the procedure well. No immediate postprocedure complications are noted. Patient discharged in good condition. Discharge date 08/22/2018. Discharge diet: Regular. Discharge activity: Regular. 2-3-week follow-up to discuss findings. Patient is instructed to call the office or proceed to the emergency room should there be any further proximal questions. Wait on the pathology.
== END 2018-08-22 10:45 | disposition home or self-care (01) ==
LOC: OROUT 07:12
PROVIDERS: ATTEND Internal Medicine Gastroenterology
DX: D12.0 Benign neoplasm of cecum (principal); K64.8 Other hemorrhoids; D50.0 Iron deficiency anemia secondary to blood loss (chronic); K52.9 Noninfective gastroenteritis and colitis, unspecified; K62.5 Hemorrhage of anus and rectum; K29.50 Unspecified chronic gastritis without bleeding; K31.7 Polyp of stomach and duodenum; I25.10 Atherosclerotic heart disease of native coronary artery without angina pectoris; I10 Essential (primary) hypertension; G40.909 Epilepsy, unspecified, not intractable, without status epilepticus; Z87.891 Personal history of nicotine dependence; Z86.73 Personal history of transient ischemic attack (TIA), and cerebral infarction without residual deficits; Z85.828 Personal history of other malignant neoplasm of skin; Z79.01 Long term (current) use of anticoagulants; Z79.899 Other long term (current) drug therapy
CPT/HCPCS: 43239; 45380; 45385; 93005; 36415 ×2; 84132; 85027; 85610; 85730; 80048; 88305 ×2; 93010; J2704; 813

== ENCOUNTER 2018-10-09 12:06 | Day surgery (SDC) | payer MEDICARE, OTHER ==
--- NOTE | 2018-09-29 15:19 | EKG REPORT ---
SEVERITY:- ABNORMAL ECG - SINUS RHYTHM PROBABLE LEFT ATRIAL ABNORMALITY PROBABLE POSTERIOR INFARCT : Confirmed by: Rosie Phillip 29-Sep-2018 15:18:55
[2018-10-09 13:40] LABS: INTERNATIONAL RATION (INR) 1.13; PROTHROMBIN TIME 15.1 SEC (11.4-15.4)
[2018-10-09] MEDS ORDERED: BUPIVACAINE INJ/PF LIPOSOME/PF 266 MG/20 ML SDV ONE (14:16)
[2018-10-09] MEDS ORDERED: LIDOCAINE 2% JELLY 30 ML TUBE ONE (14:16)
[2018-10-09] MEDS ORDERED: BACITRACIN ZINC OINTMENT 15 GM ONE (14:16)
[2018-10-09 14:37] LABS: ABSOLUTE BASOPHILS # (AUTO) 0.1 10^3/uL (0.0-0.2); ABSOLUTE EOSINOPHILS # (AUTO) 0.4 10^3/uL (0.0-0.6); ABSOLUTE LYMPHOCYTES (AUTO) 1.6 10^3/uL (0.5-4.7); ABSOLUTE MONOCYTES (AUTO) 0.6 10^3/uL (0.1-1.4); ABSOLUTE NEUT (AUTO) 3.6 10^3/uL (1.7-8.2); BASOPHILS % (AUTO) 1.5 % (0-2); EOSINOPHILS % (AUTO) 5.8 % (0-6); HEMATOCRIT 25.2 % (37.9-51.0); MEAN CORPUSCULAR HEMOGLOBIN 21.8 pg (27.0-33.4); MEAN CORPUSCULAR HGB CONC 31.8 g/dL (32.0-36.0); MEAN CORPUSCULAR VOLUME 69 fl (80-97); MONOCYTES % (AUTO) 10.3 % (3-13); PLATELET COUNT 342 10^3/uL (150-450); RED BLOOD COUNT 3.68 10^6/uL (4.35-5.55); RED CELL DISTRIBUTION WIDTH 17.1 % (11.5-14.0); SEGMENTED NEUTROPHILS % (AUTO) 56.4 % (42-78); TOTAL CELLS COUNTED % (AUTO) 100 %; WHITE BLOOD COUNT 6.3 10^3/uL (4.0-10.5)
[2018-10-09] MEDS ORDERED: MIDAZOLAM 2 MG/2 ML INJ ONE (16:53)
[2018-10-09] MEDS ORDERED: PROPOFOL INJ 200 MG/20 ML VIAL IV ONE (16:53)
[2018-10-09] MEDS ORDERED: FENTANYL CITRATE INJ/PF 100 MCG/2 ML AMPUL ONE (16:53)
[2018-10-09] MEDS ORDERED: MORPHINE SULFATE 10 MG/ML INJ IV PRN (18:22)
[2018-10-09] MEDS ORDERED: MEPERIDINE HCL/PF INJ 25 MG/1 ML DISP.SYRIN IV PRN (18:22)
[2018-10-09] MEDS ORDERED: OXYCODONE-ACETAMINOPHEN 5-325 MG TABLET PO PRN ×2 (18:22)
[2018-10-09] MEDS ORDERED: FENTANYL CITRATE INJ/PF 100 MCG/2 ML AMPUL IV PRN ×3 (18:22)
[2018-10-09] MEDS ORDERED: PROMETHAZINE HCL INJ 25 MG/1 ML VIAL IV PRN ×2 (18:22)
[2018-10-09] MEDS ORDERED: DIPHENHYDRAMINE HCL 50 MG/ML VIAL IV PRN (18:22)
[2018-10-09 19:49] VITALS: BP 128/78
--- NOTE | 2018-10-11 15:03 | Discharge Summary ---
Discharge Summary (SDC) - Discharge Final Diagnosis: Bleeding internal hemorrhoids Date of Surgery: 10/09/18 Discharge Date: 10/09/18 Condition: Stable Forms: ASU Anesthesia D/C Instruction, Discharge POC-Surgical Service Referrals: KIANNA CONTRERAS PA-C [Primary Care Provider] - JOEL NEAL MD [ACTIVE STAFF] - Discharge Diet: As Tolerated Respiratory Treatments at Home: Deep Breathing/Coughing Discharge Activity: Balance Activity w/Rest, No Driving, No Lifting Over 10 Pounds, No Lifting/Push/Pulling Home Care Assistance: None Needed Report the Following to Your Physician Immediately: Shortness of Breath, Nausea , Vomiting, Increase in Pain, Fever over 101 Degrees, Unusual Bleeding, Redness , Swelling, Warmth, Increased Soreness, Drainage-Yellow, Drainage-Dent, Drainage -Green, Drainage-Foul Smelling, Large Clots, Numbness, Wheezing, IV Site Infection Signs, Urinary Infection Signs
--- NOTE | 2018-10-11 15:06 | Operative Report ---
Nonrecallable Operative Report DATE OF SURGERY: 10/09/18 PREOPERATIVE DIAGNOSIS: Bleeding internal hemorrhoids POSTOPERATIVE DIAGNOSIS: Same as above OPERATION: Rubber band ligation of internal hemorrhoids x5 SURGEON: JOEL NEAL ANESTHESIA: LMAC TISSUE REMOVED OR ALTERED: None COMPLICATIONS: None apparent ESTIMATED BLOOD LOSS: Minimal PROCEDURE: Range/implants: None. Procedure in detail: After informed consent was obtained, the patient was brought into the operating room and laid in the left lateral decubitus position. A Hill-Arriola retractor was inserted into the rectum, and the internal hemorrhoids were inspected. There were multiple, enlarged hemorrhoids circumferentially. 5 rubber bands were placed around the internal hemorrhoids, circumferentially. After this was completed, the procedure was concluded. All sponge, instrument, and needle counts were correct x2. Condition: Stable.
== END 2018-10-09 19:40 | disposition home or self-care (01) ==
LOC: OROUT 12:06
PROVIDERS: ATTEND Surgery
DX: K64.8 Other hemorrhoids (principal); Z86.73 Personal history of transient ischemic attack (TIA), and cerebral infarction without residual deficits; Z87.898 Personal history of other specified conditions; I10 Essential (primary) hypertension; E78.00 Pure hypercholesterolemia, unspecified; G47.30 Sleep apnea, unspecified; F32.9 Major depressive disorder, single episode, unspecified; F17.210 Nicotine dependence, cigarettes, uncomplicated; Z79.899 Other long term (current) drug therapy; Z79.01 Long term (current) use of anticoagulants; Z85.828 Personal history of other malignant neoplasm of skin
CPT/HCPCS: 93005; 36415; 85025; 85610; 85730; 93010; 46221; J2250; J3010; J2704; 902; C9290; J3490

== ENCOUNTER 2018-10-13 07:38 | Day surgery (SDC) | payer MEDICARE, OTHER ==
[~2018-10-13 07:38] MED LIST changes: -LACTATED RINGERS 1000 ML IV PRN; -LIDOCAINE 0.5% INJ-PF (5 MG/ML) 50 ML SDV SUBCUT PRN; +PROPOFOL INJ 200 MG/20 ML VIAL IV ONE
[2018-10-13 09:06] VITALS: BP 110/70
--- NOTE | 2018-10-13 12:29 | Operative Report ---
Operative Report DATE OF SURGERY: 10/13/18 Operative Report: The risks benefits and alternatives of the procedure explained to the patient in detail and informed consent is obtained.A GIF Olympus video scope was inserted into the patient's mouth and hypopharynx, the esophagus is identified intubated and insufflated, the scope was then advanced through the esophagus stomach and duodenum, retroflexion maneuver is done the esophagus stomach and first and second portions of the duodenum examined PREOPERATIVE DIAGNOSIS: Anne's esophagus POSTOPERATIVE DIAGNOSIS: Gastritis that is healed. Residual tissue at the distal esophagus noted for Anne's esophagus status post ablation OPERATION: EGD with radiofrequency ablation SURGEON: TERESITA HOLLIS ANESTHESIA: LMAC TISSUE REMOVED OR ALTERED: As noted above. COMPLICATIONS: None. ESTIMATED BLOOD LOSS: None. INTRAOPERATIVE FINDINGS: As noted above. PROCEDURE: Patient tolerated the procedure well. No immediate postprocedure complications are noted. Patient discharged in good condition. Discharge date 10/13/2018. Discharge diet: Regular. Discharge activity: Regular. 2-3-week follow-up to discuss findings. Patient is instructed to call the office or proceed to the emergency room should there be any further problems or questions.
== END 2018-10-13 09:10 | disposition home or self-care (01) ==
LOC: END 07:38
PROVIDERS: ATTEND Internal Medicine Gastroenterology
DX: K22.70 Barrett's esophagus without dysplasia (principal); Z09 Encounter for follow-up examination after completed treatment for conditions other than malignant neoplasm; Z87.19 Personal history of other diseases of the digestive system; Z86.010 Personal history of colon polyps; I10 Essential (primary) hypertension; Z86.73 Personal history of transient ischemic attack (TIA), and cerebral infarction without residual deficits; F17.210 Nicotine dependence, cigarettes, uncomplicated; Z79.899 Other long term (current) drug therapy; Z79.01 Long term (current) use of anticoagulants; I48.2 Chronic atrial fibrillation; G40.909 Epilepsy, unspecified, not intractable, without status epilepticus; G47.33 Obstructive sleep apnea (adult) (pediatric)
CPT/HCPCS: 43270; J2704; 731

== ENCOUNTER 2020-07-26 05:44 | Day surgery (SDC) | payer OTHER, MEDICARE ==
[2020-07-22 08:58] LABS: ABSOLUTE BASOPHILS # (AUTO) 0.1 10^3/uL (0.0-0.2); ABSOLUTE EOSINOPHILS # (AUTO) 0.3 10^3/uL (0.0-0.6); ABSOLUTE LYMPHOCYTES (AUTO) 1.6 10^3/uL (0.5-4.7); ABSOLUTE MONOCYTES (AUTO) 0.6 10^3/uL (0.1-1.4); ABSOLUTE NEUT (AUTO) 5.5 10^3/uL (1.7-8.2); BASOPHILS % (AUTO) 1.3 % (0-2); EOSINOPHILS % (AUTO) 3.4 % (0-6); HEMATOCRIT 37.8 % (37.9-51.0); HEMOGLOBIN 12.4 g/dL (13.5-17.0); LYMPHOCYTES % (AUTO) 19.6 % (13-45); MEAN CORPUSCULAR HGB CONC 32.7 g/dL (32.0-36.0); MEAN CORPUSCULAR VOLUME 83 fl (80-97); MONOCYTES % (AUTO) 7.2 % (3-13); PLATELET COUNT 376 10^3/uL (150-450); RED BLOOD COUNT 4.58 10^6/uL (4.35-5.55); SEGMENTED NEUTROPHILS % (AUTO) 68.5 % (42-78); TOTAL CELLS COUNTED % (AUTO) 100 %
[2020-07-22 09:11] LABS: ANION GAP 12 (5-19); BLOOD UREA NITROGEN 14 mg/dL (7-20); CALCIUM 9.5 mg/dL (8.4-10.2); CARBON DIOXIDE 27 mmol/L (22-30); CHLORIDE 104 mmol/L (98-107); GLUCOSE 98 mg/dL (75-110); POTASSIUM 4.6 mmol/L (3.6-5.0); PROTHROMBIN TIME 14.4 SEC (11.4-15.4)
[2020-07-22 09:12] LABS: PARTIAL THROMBOPLASTIN TIME 33.8 SEC (23.5-35.8)
--- NOTE | 2020-07-22 21:30 | EKG REPORT ---
SEVERITY:- NORMAL ECG - SINUS RHYTHM : Confirmed by: Lola Dinero MD 22-Jul-2020 21:29:34
[~2020-07-26 05:44] MED LIST changes: +DOXYCYCLINE HYCLATE 100 MG in DEXTROSE 5%-WATER 250 ML IV PRN; +DOXYCYCLINE HYCLATE INJ 100 MG VIAL ONE; +LACTATED RINGERS 1000 ML IV PRN; +LIDOCAINE 0.5% INJ-PF (5 MG/ML) 50 ML SDV SUBCUT PRN; -PROPOFOL INJ 200 MG/20 ML VIAL IV ONE
[2020-07-26] MEDS ORDERED: FENTANYL CITRATE INJ/PF 250 MCG/5 ML AMPULE ONE (06:44)
[2020-07-26] MEDS ORDERED: MIDAZOLAM 2 MG/2 ML INJ ONE (06:44)
[2020-07-26] MEDS ORDERED: EPHEDRINE SULFATE INJ 50 MG/1 ML AMPULE ONE (06:45)
[2020-07-26] MEDS ORDERED: ONDANSETRON HCL INJ/PF 4 MG/2 ML SDV ONE (06:45)
[2020-07-26] MEDS ORDERED: PROPOFOL 1,000 MG/100 ML INFUS..BTL IV ONE (06:45)
[2020-07-26 06:57] LABS: INTERNATIONAL RATION (INR) 1.09; PROTHROMBIN TIME 14.3 SEC (11.4-15.4)
[2020-07-26 06:58] LABS: PARTIAL THROMBOPLASTIN TIME 32.9 SEC (23.5-35.8)
[2020-07-26] MEDS ORDERED: LIDOCAINE 1%/EPINEPHRINE INJ 20 ML VIAL ONE (07:43)
[2020-07-26] MEDS ORDERED: SODIUM BICARBONATE 4.2% INJ (2.5 MEQ/5 ML) VIAL ONE (07:43)
--- NOTE | 2020-07-26 08:58 | Operative Report ---
Operative Report DATE OF SURGERY: 07/26/20 PREOPERATIVE DIAGNOSIS: Suspected basal cell carcinoma from the left posterior scalp POSTOPERATIVE DIAGNOSIS: Basal cell carcinoma of the left posterior scalp OPERATION: Excision of basal cell carcinoma from the left posterior scalp with frozen section margin control and reconstruction with a boomerang slight advancement flap reconstruction SURGEON: HOLGER ENRIQUEZ ANESTHESIA: LMAC TISSUE REMOVED OR ALTERED: Basal cell carcinoma COMPLICATIONS: None ESTIMATED BLOOD LOSS: Minimal PROCEDURE: Patient seen and was marked prior to being brought into the operating room. Patient was brought into the operating room and placed on the operating room table in a sloppy lateral position. Patient was then prepped with a Betadine scrub and Betadine solution and draped in a sterile and aseptic manner. The area was then marked. 12 O'clock was marked towards the anterior scalp 3 O'clock was marked towards the right side 6:00 was marked towards the posterior scalp 9:00 was marked towards the left side The area was then anesthetized with 1% lidocaine with epinephrine and bicarbonate for its anesthetic and hemostatic effects. The area was then excised and marked at 12:00. The specimen was sent for frozen section. The results came back that the deep and lateral margins were free. We had considered a primary closure but this would go against the natural relaxed skin tension lines. A primary closure would be too tight and would have increased chance of dehiscence. This will leave more of a scar so we decided to use a boomerang sliding advancement flap reconstruction which would camouflage the scar better and take tension off of the closure so that would be less chances of complications. It was felt that by using this flap this would allow us to mobilize the area where there was some laxity to bring the flap into its new position to reconstruct the defect. We tested different directions in the direction that we used was the one that would allow the flap to advance the best. A direct closure was impossible because of undue amount of tension. Then we went ahead and outlined the flap and anesthetized it. We then incised the flap and developed a flap maintaining the subdermal plexus. Then we undermined 360 to allow for plate like scarring and minimize trap door deformity. Throughout the case hemostasis was achieved with the bipolar. Skin was closed with a interrupted simple stitch using 3-0 Prolene with knots being tied on the outside. We then applied bacitracin followed by a light pressure dressing. Patient was then reversed from anesthesia and taken to the [facility] for recovery. The patient tolerated well. There were no complications. Lesion size was approximately 2-1/2 cm please see pathology for actual size. Portions of this note may be dictated using [employer] voice recognition software. Occasional variations and spelling and vocabulary could be possible and are unintentional. Additionally, there is a chance that some errors may not be caught or corrected. Please notify the author of any discrepancies noted or if any statements are unclear. Subjective: No complaints Objective: Vital signs stable afebrile No bleeding Dressing intact Assessment and plan: Doing well. Elevate the operative site. Resume medications. Take antibiotics for 1 day Follow-up Full instructions were given to the patient and family and they understand Portions of this note may be dictated using [employer] voice recognition software. Occasional variations and spelling and vocabulary could be possible and are unintentional. Additionally, there is a chance that some errors may not be caught or corrected. Please notify the offer of any discrepancies noted or if any statements are unclear.
--- NOTE | 2020-07-26 09:09 | Discharge Summary ---
Discharge Summary (SDC) - Discharge Final Diagnosis: Basal cell carcinoma the left posterior scalp Date of Surgery: 07/26/20 Condition: Good Treatment or Instructions: Leave top dressing on for 2 days. Then clean the wound with peroxide and apply bacitracin 2 times a day Antibiotics for 1 day, then discontinue. Elevate operative area to decrease swelling. Do not strain, or lift heavy objects. Call for excessive bleeding, increased temperature of 101, uncontrolled pain, or excessive nausea or vomiting. You may reach Dr. Dominguez through his office at [phone]. In the event of an emergency after hours, then contact Dr. Dominguez through [facility]. Return to the office for a postop check on . The time will be scheduled by the nursing staff of [facility] prior to discharge. Please give the patient a copy of their labs and EKG so they can bring this to their PMD. Thank you Portions of this note may be dictated using [employer] voice recognition software. Occasional variations and spelling and vocabulary could be possible and are unintentional. Additionally, there is a chance that some errors may not be caught or corrected. Please notify the offer of any discrepancies noted or if any statements are unclear. Referrals: KIANNA CONTRERAS PA-C [Primary Care Provider] - Discharge Diet: As Tolerated Discharge Activity: No Lifting/Push/Pulling Report the Following to Your Physician Immediately: Unusual Bleeding - Keep head elevated. No bending or straining. Take top dressing down in 2 days. Clean with peroxide and then apply bacitracin. Do this twice a day. Resume any medicines stopped for the surgery starting tomorrow. Take regular medications as prescribed today. Take antibiotics today and tomorrow then stop. Follow-up on Saturday.
[2020-07-26 12:03] VITALS: BP 108/71
== END 2020-07-26 10:25 | disposition home or self-care (01) ==
LOC: OROUT 05:44
PROVIDERS: ATTEND Plastic Surgery
DX: C44.49 Other specified malignant neoplasm of skin of scalp and neck (principal); Z79.01 Long term (current) use of anticoagulants; Z79.899 Other long term (current) drug therapy; Z86.73 Personal history of transient ischemic attack (TIA), and cerebral infarction without residual deficits; I10 Essential (primary) hypertension; F17.210 Nicotine dependence, cigarettes, uncomplicated; L57.0 Actinic keratosis; L57.8 Other skin changes due to chronic exposure to nonionizing radiation; Z03.818 Encounter for observation for suspected exposure to other biological agents ruled out
CPT/HCPCS: 93005; 36415 ×2; 85025; 85610 ×2; 85730 ×2; 80048; 88305 ×2; 88331 ×2; 93010; 00300; 14020; U0003; J2250; J3490 ×4; J3010; J2704; J2405; J7060; C9803; 300; 87635

== ENCOUNTER 2020-08-16 07:15 | Day surgery (SDC) | payer OTHER, MEDICARE ==
[2020-08-16] MEDS ORDERED: PROPOFOL INJ 200 MG/20 ML VIAL IV ONE (07:45)
--- NOTE | 2020-08-16 08:51 | Operative Report ---
Operative Report DATE OF SURGERY: 08/16/20 Operative Report: The risk, benefits and alternatives of the procedure including the risks of bleeding, perforation requiring surgery have been explained to the patient in detail and informed consent has been obtained. Patient is placed in left, lateral decubital position. Timeout was called. Propofol medication is administered. Rectal examination is done which did not reveal any masses, tears or fissures. An Olympus videoscope was introduced into the patient's rectum. Scope was then carefully advanced all the way to the cecum. Cecum was identified by the usual anatomical landmarks including the ileocecal valve as well as the appendiceal office. Photodocumentation is obtained. Scope was then sequentially pulled back via the various segments of the colon including the ascending colon, hepatic flexure, transverse colon, splenic flexure, descending colon and into the rectosigmoid portions of the colon. Retroflexion maneuvers performed. PREOPERATIVE DIAGNOSIS: Rectal bleeding POSTOPERATIVE DIAGNOSIS: Normal screening OPERATION: Diagnostic colonoscopy SURGEON: TERESITA HOLLIS ANESTHESIA: LMAC TISSUE REMOVED OR ALTERED: As noted above. COMPLICATIONS: None. ESTIMATED BLOOD LOSS: None. INTRAOPERATIVE FINDINGS: As noted above. Internal hemorrhoids PROCEDURE: Patient tolerated the procedure well. No immediate postprocedure complications are noted. Patient is discharged in good condition. Discharge date 08/16/2020. Discharge diet: Regular. Discharge activity: Regular. 2 to 3-week follow-up to discuss findings. Patient is instructed to call the office or proceed to the emergency room should there be any further problems or questions. Bleeding likely due to internal hemorrhoids. 10-year surveillance colonoscopy.
[2020-08-16 09:13] VITALS: BP 129/88
== END 2020-08-16 09:20 | disposition home or self-care (01) ==
LOC: END 07:15
PROVIDERS: ATTEND Internal Medicine Gastroenterology
DX: K64.8 Other hemorrhoids (principal); K62.5 Hemorrhage of anus and rectum; D64.9 Anemia, unspecified; Z79.899 Other long term (current) drug therapy; Z03.818 Encounter for observation for suspected exposure to other biological agents ruled out; G47.33 Obstructive sleep apnea (adult) (pediatric); I10 Essential (primary) hypertension; I48.0 Paroxysmal atrial fibrillation; F17.210 Nicotine dependence, cigarettes, uncomplicated; Z79.01 Long term (current) use of anticoagulants; Z86.73 Personal history of transient ischemic attack (TIA), and cerebral infarction without residual deficits; Z86.010 Personal history of colon polyps
CPT/HCPCS: 45378; U0003; J2704; C9803; 812; 87635

== ENCOUNTER 2020-09-06 08:18 | Day surgery (SDC) | payer OTHER, MEDICARE ==
[~2020-09-06 08:18] MED LIST changes: -DOXYCYCLINE HYCLATE 100 MG in DEXTROSE 5%-WATER 250 ML IV PRN; -DOXYCYCLINE HYCLATE INJ 100 MG VIAL ONE; -LACTATED RINGERS 1000 ML IV PRN; -LIDOCAINE 0.5% INJ-PF (5 MG/ML) 50 ML SDV SUBCUT PRN; +PROPOFOL INJ 200 MG/20 ML VIAL IV ONE
--- NOTE | 2020-09-06 09:40 | Operative Report ---
Operative Report DATE OF SURGERY: 09/06/20 Operative Report: The risks benefits and alternatives of the procedure explained to the patient in detail and informed consent is obtained.A GIF Olympus video scope was inserted into the patient's mouth and hypopharynx, the esophagus is identified intubated and insufflated ,the scope was then advanced through the esophagus stomach and duodenum, retroflexion maneuver is done, the esophagus stomach and first and second portions of the duodenum examined PREOPERATIVE DIAGNOSIS: Rule out GI bleed POSTOPERATIVE DIAGNOSIS: Duodenitis with possible Armando's glands hyperplasia. Gastritis status post biopsy. Hiatal hernia OPERATION: EGD with biopsy SURGEON: TERESITA HOLLIS ANESTHESIA: LMAC TISSUE REMOVED OR ALTERED: As noted above COMPLICATIONS: None. ESTIMATED BLOOD LOSS: None. INTRAOPERATIVE FINDINGS: As noted above. PROCEDURE: Patient tolerated the procedure well. No immediate postprocedure complications are noted. Patient is discharged in good condition. Discharge date 09/06/2020. Discharge diet: Regular. Discharge activity: Regular. 2 to 3-week follow-up to discuss findings. Patient is instructed call the office or proceed to the emergency room should there be any further problems or questions. Wait on the pathology.
[2020-09-06 10:08] VITALS: BP 96/53
== END 2020-09-06 10:15 | disposition home or self-care (01) ==
LOC: END 08:18
PROVIDERS: ATTEND Internal Medicine Gastroenterology
DX: K29.80 Duodenitis without bleeding (principal); K29.70 Gastritis, unspecified, without bleeding; K31.9 Disease of stomach and duodenum, unspecified; K44.9 Diaphragmatic hernia without obstruction or gangrene; D50.9 Iron deficiency anemia, unspecified; F17.200 Nicotine dependence, unspecified, uncomplicated; Z03.818 Encounter for observation for suspected exposure to other biological agents ruled out; I48.91 Unspecified atrial fibrillation; Z79.01 Long term (current) use of anticoagulants
CPT/HCPCS: 43239; 88305 ×2; 00731; U0003; J2704; C9803; 731; 87635